=== PATIENT | female | born 1990 | race Caucasian/White ===

== ENCOUNTER 2018-01-03 07:24 | Emergency (ER) | payer SELFPAY ==
[~2018-01-03] VITALS: Ht 157.5 cm; Wt 88.6 kg
[~2018-01-03 07:24] MED LIST: IBUPROFEN200 M1 PO; Motrin PO; NATALCARE RX1 TABLE1 PO; NOHOMEMEDS; Percocet 5/325,Endoc PO
[2018-01-03] MEDS ORDERED: MUCUS-ER MAX1200 MG PO (08:11)
[2018-01-03] MEDS ORDERED: VENTOLIN HFA18 GM IH (08:11)
[2018-01-03] MEDS ORDERED: DELSYM30 MG/5 M1 PO (08:11)
[2018-01-03 08:49] VITALS: BP 124/74
== END 2018-01-03 08:50 | disposition home or self-care (01) ==
LOC: EME 07:24
DX: J40 Bronchitis, not specified as acute or chronic (principal); F17.200 Nicotine dependence, unspecified, uncomplicated; Z79.891 Long term (current) use of opiate analgesic
CPT/HCPCS: 94640; 99281; 99284

== ENCOUNTER 2018-05-30 22:13 | Emergency (ER) | payer SELFPAY ==
[~2018-05-30] VITALS: Ht 157.5 cm; Wt 84.9 kg
[~2018-05-30 22:13] MED LIST changes: +DELSYM30 MG/5 M1 PO; +MUCUS-ER MAX1200 MG PO; +VENTOLIN HFA18 GM IH
[2018-05-30 23:22] LABS: APPEARANCE CLEAR ((CLEAR)); BILIRUBIN NEGATIVE; BLOOD NEGATIVE; COLOR AMBER ((YELLOW)); GLUCOSE (STRIP) NEGATIVE; KETONES NEGATIVE; LEUKOCYTES NEGATIVE; NITRITE POSITIVE; PROTEIN (STRIP) NEGATIVE; SPECIFIC GRAVITY 1.008 (1.000-1.030)
[2018-05-30 23:32] LABS: BACTERIA RARE /HPF; EPITHELIAL CELLS RARE /HPF; MUCUS TRACE /LPF; RED BLOOD CELLS 0-5 /HPF (0-5); UCUL ADDED? YES; WHITE BLOOD CELLS 15-20 /HPF (0-5)
[2018-05-30] MEDS ORDERED: KEFLEX500 MG PO (23:45)
[2018-05-30] MEDS ORDERED: PYRIDIUM200 MG PO (23:45)
[2018-05-31 00:10] VITALS: BP 128/72
== END 2018-05-31 00:11 | disposition home or self-care (01) ==
LOC: EME 22:13
PROVIDERS: Physician Assistant
DX: N39.0 Urinary tract infection, site not specified (principal); F17.200 Nicotine dependence, unspecified, uncomplicated
CPT/HCPCS: 81003; 81025; 87086; 99281; 99284